=== PATIENT | male | born 1975 | race Caucasian/White ===

== ENCOUNTER 2024-07-25 00:59 | Emergency (ER) | payer OTHER ==
[~2024-07-25] VITALS: Ht 177.8 cm; Wt 86.2 kg
[2024-07-25] MEDS ORDERED: Acetaminophen/Hydrocodone 5 MG/325 MG TABLET PO ONE (01:30)
[2024-07-25] MEDS ORDERED: Ondansetron Hydrochloride 4 MG TAB SL ONE (01:30)
== END 2024-07-25 01:32 | disposition home or self-care (01) ==
LOC: ED 00:59
DX: G89.29 Other chronic pain (principal); M54.9 Dorsalgia, unspecified

== ENCOUNTER → 2024-08-12 | Emergency (ER) | payer OTHER ==
[~2024-08-12] VITALS: Wt 89.8 kg
[~2024-08-12] MED LIST: CIPRO500 MG PO; DICYCLOMINE HYD20 MG PO; FAMOTIDINE 50 ML IV ONE; MORPHINE Sulfate 2 MG/ML SYR IV ONE; Ondansetron Hydrochloride 4 MG/2 ML VIAL IV ONE; SODIUM CHLORIDE 0.9% 1,000 ML IV ONE; TRAMADOL HCL50 MG PO
[2024-08-12 08:50] LABS: BASO # 0.1 10*3/uL (0.0-0.1); BASO % 0.6 % (0.0-1.0); EOS # 0.1 10*3/uL (0.0-0.4); EOS % 1.7 % (1.0-4.0); HEMATOCRIT 42.5 % (42.0-52.0); MEAN CELL VOLUME 88.4 fl (80.0-94.0); MEAN CORPUSCULAR HGB 29.5 pg (27.0-31.0); MEAN CORPUSCULAR HGB CONC 33.4 g/dl (33.0-37.0); MEAN PLATELET VOLUME 9.5 fl (9.6-12.3); MONO # 0.5 10*3/uL (0.1-1.0); MONO % 6.7 % (3.0-9.0); NEUT # 5.1 10*3/uL (2.3-7.9); NEUT % 63.6 % (47.0-73.0); PLATELET COUNT AUTOMATED 234 10*3/uL (130-400); RED BLOOD COUNT 4.81 10*6/uL (4.50-5.90); RED CELL DISTRI WIDTH 13.2 % (0-14.5); WHITE BLOOD COUNT 8.1 10*3/uL (4.8-10.8)
[2024-08-12 09:10] LABS: BUN 12 mg/dl (9-23); CHLORIDE 109 mmol/L (98-107); LIPASE 40 U/L (12-53); POTASSIUM 3.5 mmol/L (3.4-5.1)
== END ==
LOC: ED 08:03
PROVIDERS: Emergency Medicine
DX: R10.31 Right lower quadrant pain (principal); R19.7 Diarrhea, unspecified

== ENCOUNTER 2024-08-13 18:57 | Emergency (ER) | payer OTHER ==
[~2024-08-13] VITALS: Ht 177.8 cm; Wt 88.5 kg
[~2024-08-13 18:57] MED LIST changes: -FAMOTIDINE 50 ML IV ONE; -MORPHINE Sulfate 2 MG/ML SYR IV ONE; -Ondansetron Hydrochloride 4 MG/2 ML VIAL IV ONE; -SODIUM CHLORIDE 0.9% 1,000 ML IV ONE; -TRAMADOL HCL50 MG PO
[2024-08-13] MEDS ORDERED: Promethazine Hydrochloride 25 MG/ML VIAL IM ONE (19:45)
[2024-08-13] MEDS ORDERED: MORPHINE Sulfate 2 MG/ML SYR IM ONE (19:45)
[2024-08-14] MEDS ORDERED: TRAMADOL HCL50 MG PO (11:23)
== END 2024-08-13 20:06 | disposition home or self-care (01) ==
LOC: ED 18:57
DX: R10.31 Right lower quadrant pain (principal); Z79.899 Other long term (current) drug therapy; Z98.890 Other specified postprocedural states

== ENCOUNTER 2024-08-14 08:51 | Emergency (ER) | payer OTHER ==
[~2024-08-14] VITALS: Ht 177.8 cm; Wt 89.8 kg
[2024-08-14 09:46] LABS: BASO % 0.6 % (0.0-1.0); EOS # 0.1 10*3/uL (0.0-0.4); EOS % 1.5 % (1.0-4.0); HEMATOCRIT 44.4 % (42.0-52.0); MEAN CELL VOLUME 87.1 fl (80.0-94.0); MEAN CORPUSCULAR HGB CONC 33.3 g/dl (33.0-37.0); MEAN PLATELET VOLUME 9.3 fl (9.6-12.3); MONO # 0.3 10*3/uL (0.1-1.0); MONO % 4.9 % (3.0-9.0); NEUT % 76.6 % (47.0-73.0); PLATELET COUNT AUTOMATED 248 10*3/uL (130-400); RED CELL DISTRI WIDTH 13.2 % (0-14.5); WHITE BLOOD COUNT 6.6 10*3/uL (4.8-10.8)
[2024-08-14 10:07] LABS: ALKALINE PHOSPHATASE 48 U/L (46-116); BUN 11 mg/dl (9-23); CHLORIDE 108 mmol/L (98-107); POTASSIUM 3.7 mmol/L (3.4-5.1); SGPT/ALT 24 U/L (5-49); TOTAL PROTEIN 6.7 gm/dL (6.0-8.0)
[2024-08-14] MEDS ORDERED: TRAMADOL HCL50 MG PO (11:23)
== END 2024-08-14 13:31 | disposition home or self-care (01) ==
LOC: ED 08:51
PROVIDERS: Internal Medicine
DX: N50.3 Cyst of epididymis (principal); Z79.899 Other long term (current) drug therapy; Z98.890 Other specified postprocedural states

== ENCOUNTER 2024-12-22 08:34 | Emergency (ER) | payer OTHER ==
[~2024-12-22] VITALS: Ht 177.8 cm; Wt 79.4 kg
[~2024-12-22 08:34] MED LIST changes: +TRAMADOL HCL50 MG PO
[2024-12-22] MEDS ORDERED: TRAMADOL HCL100 MG PO (08:44)
[2024-12-22] MEDS ORDERED: GABAPENTIN100 M2 PO (08:45)
[2024-12-22] MEDS ORDERED: OMEPRAZOLE40 MG PO (08:45)
[2024-12-22] MEDS ORDERED: Ondansetron Hydrochloride 4 MG/2 ML VIAL IV ONE (08:50)
[2024-12-22] MEDS ORDERED: SODIUM CHLORIDE 0.9% 1,000 ML IV ONE (08:50)
[2024-12-22] MEDS ORDERED: fentaNYL CITRATE/PF 50 MCG/ML SYRINGE IV ONE (08:50)
[2024-12-22 09:00] LABS: BASO # 0.1 10*3/uL (0.0-0.1); BASO % 1.3 % (0.0-1.0); EOS # 1.5 10*3/uL (0.0-0.4); EOS % 17.8 % (1.0-4.0); MEAN CELL VOLUME 87.1 fl (80.0-94.0); MEAN CORPUSCULAR HGB 29.2 pg (27.0-31.0); MEAN PLATELET VOLUME 9.5 fl (9.6-12.3); MONO # 0.5 10*3/uL (0.1-1.0); MONO % 5.4 % (3.0-9.0); NEUT # 4.5 10*3/uL (2.3-7.9); NEUT % 51.5 % (47.0-73.0); NUCLEATED RED BLOOD CELL 0.0 % (0.0-0.0); NUCLEATED RED BLOOD CELL 0.0 10*3/uL (0.0-0.0); PLATELET COUNT AUTOMATED 247 10*3/uL (130-400); RED CELL DISTRI WIDTH 13.2 % (0-14.5)
[2024-12-22 09:26] LABS: BUN 11 mg/dl (9-23); SGPT/ALT 23 U/L (5-49)
[2024-12-22 10:06] LABS: BILIRUBIN Negative (Negative); BLOOD Negative (Negative); CLARITY Clear (Clear); COLOR Yellow (Yellow); KETONE 2+ (Negative); LEUKO ESTERASE Negative (Negative); NITRITE Negative (Negative); PH 6.5 (4.5-8.0); SPECIFIC GRAVITY 1.025 (1.001-1.030); UROBILINOGEN 1.0 E.U./dl (0.0-1.0)
[2024-12-22 10:18] LABS: BACTERIA TRACE; MUCOUS 1+
[2024-12-22] MEDS ORDERED: PERCOCET 5-3251 EACH PO (11:06)
== END 2024-12-22 11:12 | disposition home or self-care (01) ==
LOC: ED 08:34
PROVIDERS: Emergency Medicine
DX: R10.32 Left lower quadrant pain (principal); Q63.2 Ectopic kidney

== ENCOUNTER → 2025-01-02 | Outpatient (CLI) | payer OTHER ==
[~2025-01-02] MED LIST changes: +GABAPENTIN100 M2 PO; +IOHEXOL 350 MG/ML 100 ML VIAL IV ONE; +OMEPRAZOLE40 MG PO; +PERCOCET 5-3251 EACH PO; +TRAMADOL HCL100 MG PO
== END | disposition home or self-care (01) ==
LOC: CT 15:51
PROVIDERS: ATTEND Urology
DX: R31.9 Hematuria, unspecified (principal)

== ENCOUNTER → 2025-01-10 | Outpatient (CLI) | payer OTHER ==
[~2025-01-10] MED LIST changes: -IOHEXOL 350 MG/ML 100 ML VIAL IV ONE
== END | disposition home or self-care (01) ==
LOC: LAB 16:03
PROVIDERS: ATTEND Urology
DX: R31.9 Hematuria, unspecified (principal); D40.0 Neoplasm of uncertain behavior of prostate; R79.89 Other specified abnormal findings of blood chemistry